=== PATIENT | male | born 1950 | race Caucasian/White ===

== ENCOUNTER → 2023-08-01 15:05 | Outpatient (BNVA) | payer OTHER, SELFPAY | PROVIDERS: Family Provider Internal Medicine; Visit Provider Dermatology | DX: L82.0 Inflamed seborrheic keratosis (principal); B07.8 Other viral warts; L82.1 Other seborrheic keratosis; L81.4 Other melanin hyperpigmentation; D18.01 Hemangioma of skin and subcutaneous tissue; L81.3 Cafe au lait spots | CPT/HCPCS: 17110; 99213 ==

== ENCOUNTER → 2024-07-17 08:59 | Outpatient (BNVA) | payer OTHER, SELFPAY | PROVIDERS: Family Provider Internal Medicine; Visit Provider Nurse Practitioner Family | DX: L82.0 Inflamed seborrheic keratosis (principal); L82.1 Other seborrheic keratosis; L81.4 Other melanin hyperpigmentation; D18.01 Hemangioma of skin and subcutaneous tissue; L81.3 Cafe au lait spots; L57.0 Actinic keratosis | CPT/HCPCS: 17000; 17110; 99213 ==

== ENCOUNTER → 2025-07-19 08:48 | Outpatient (BNVA) | payer OTHER, SELFPAY | PROVIDERS: Family Provider Internal Medicine; Visit Provider Nurse Practitioner Family | DX: L81.3 Cafe au lait spots (principal); L81.4 Other melanin hyperpigmentation; L57.8 Other skin changes due to chronic exposure to nonionizing radiation; L82.1 Other seborrheic keratosis; D22.5 Melanocytic nevi of trunk; L08.1 Erythrasma; L57.0 Actinic keratosis | CPT/HCPCS: 17000; 99213 ==